=== PATIENT | female | born 1950 | race Caucasian/White ===

== ENCOUNTER → 2016-11-26 | Outpatient (CLI) | payer MEDICAID, OTHER | LOC: MW.US 09:48 | PROVIDERS: ATTEND Internal Medicine | DX: I50.9 Heart failure, unspecified (principal); Z53.9 Procedure and treatment not carried out, unspecified reason ==

== ENCOUNTER 2016-11-28 08:05 | Emergency (ER) | payer MEDICARE, MEDICAID, OTHER ==
--- NOTE | 2016-11-28 08:13 | EDM.PDOC ---
ED HPI DIABETIC EMERGENCY - General Chief Complaint: Diabetic Complaint Stated Complaint: UNRESPONSIVE Time Seen by Provider: 11/28/16 08:07 - History of Present Illness INITIAL COMMENTS - FREE TEXT/NARRATIVE: HISTORY AND PHYSICAL: History of present illness: Patient 65-year-old female concern of insulin reaction she states she feels like she could not eat adequately yesterday she did take her usual dose medications and had a hypoglycemic episode prompting paramedics involvement paramedics noted a blood sugar of 46 on arrival she was given glucagon followed by D50 on arrival here her blood sugars 146 the patient is without complaints Review of systems: As per history of present illness and below otherwise all systems reviewed and negative. Past medical history: As per history of present illness and as reviewed below otherwise noncontributory. Surgical history: As per history of present illness and as reviewed below otherwise noncontributory. Social history: No reported history of drug or alcohol abuse. Family history: As per history of present illness and as reviewed below otherwise noncontributory. Physical exam: HEENT: Atraumatic, normocephalic, pupils reactive, negative for conjunctival pallor or scleral icterus, mucous membranes moist, throat clear, neck supple, nontender, trachea midline. Lungs: Clear to auscultation, breath sounds equal bilaterally, chest nontender. Heart: S1S2, regular, negative for clicks, rubs, or JVD. Abdomen: Soft, nondistended, nontender. Negative for masses or hepatosplenomegaly. Negative for costovertebral tenderness. Pelvis: Stable nontender. Genitourinary: Deferred. Rectal: Deferred. Extremities: Atraumatic, negative for cords or calf pain. Neurovascular unremarkable. Neuro: Awake, alert, oriented. Limited but grossly nonfocal exam Diagnostics: CBC CMP Therapeutics: None Impression: #1 hypoglycemia secondary to insulin reaction Definitive disposition and diagnosis as appropriate pending reevaluation and review of above. - Related Data Allergies/ADRs: Allergies Allergy/AdvReac Type Severity Reaction Status Date / Time cephalexin Allergy Cannot Verified 11/28/16 08:09 Remember Penicillins Allergy Rash Verified 11/28/16 08:09 Home Meds: Home Meds Nitroglycerin 2.5 mg PO DAILY 01/22/14 [History] Albuterol [Proventil HFA] 2 inh IH QID PRN 08/22/15 [History] Cyanocobalamin (Vitamin B12) [Vitamin B12] 1,000 mcg IM Q30D 08/22/15 [History] Insulin Detemir [Levemir Flextouch] 40 units SUBCUT BEDTIME 08/22/15 [History] Insulin Detemir [Levemir Flextouch] 42 units SUBCUT QAM 08/22/15 [History] Levothyroxine 0.175 mg PO ACBREAKFAST 08/22/15 [History] Insulin Aspart [Novolog Flexpen] 15 unit SQ TIDAC 09/04/16 [History] Albuterol/Ipratropium [DuoNeb 3.0-0.5 MG/3 ML] 1 vial NEB QID PRN 09/05/16 [ History] Pregabalin [Lyrica] 150 mg PO TID #30 capsule 09/05/16 [Rx] Ramipril [Altace] 10 mg PO DAILY 09/05/16 [History] Travoprost [Travatan Z] 1 drop EYEBOTH BEDTIME 09/05/16 [History] Aspirin [Halfprin] 81 mg PO DAILY 10/20/16 [History] Brinzolamide [Azopt 1% Ophth Susp] 1 drop EYEBOTH BID 10/20/16 [History] Bumetanide 3 mg PO DAILY 10/20/16 [History] Carvedilol 3.125 mg PO BID 10/20/16 [History] Ciprofloxacin [Ciprofloxacin HCl] 250 mg PO BID 10/20/16 [History] Triamcinolone Acetonide [Triamcinolone Acetonide 0.1% Crm] 1 applic TOP BID [History] atorvaSTATin [Lipitor] 40 mg PO BEDTIME tablet 10/21/16 [Rx] Past Medical History HEENT History: Reports: Cataract, Glaucoma, Impaired vision Other HEENT History: wears glasses, has upper and lower dentures Cardiovascular History: Reports: Angina, Heart Failure, High cholesterol, Hypertension, [place], SOB on exertion, Stents Respiratory History: Reports: Asthma Gastrointestinal History: Reports: Other (see below) Other Gastrointestinal History: painful swallowing, lactose intolerant; acid reflux Genitourinary History: Reports: UTI, recurrent, Other (see below) Other Genitourinary History: Guardian reports kidneys are not "in good shape". Reports prior cirrosis of the liver that is resolved but unknown if it actually is. [employer] History: Reports: Musculoskeletal History: Reports: Arthritis, Fracture Neurological History: Reports: Neuropathy, diabetic Other Neuro History: legs, hands and feet Psychiatric History: Reports: Anxiety, Depression, Emotional problems, Learning disability, Panic attack Endocrine/Metabolic History: Reports: Diabetes, type II, Hypothyroidism, Obesity /BMI 30+ Hematologic History: Reports: None Immunologic History: Reports: None Oncologic (Cancer) History: Reports: None Dermatologic History: Reports: Eczema, Other (see below) Other Dermatologic History: hands; unknown rash for last 5 months. - Infectious Disease History Infectious Disease History: Reports: Chicken pox, Hepatitis C, Other (see below) Other Infectious Disease History: [facility] Hepatitis C was treated 15 years ago and it is "dormant" - Past Surgical History Head Surgeries/Procedures: Reports: None HEENT Surgical History: Reports: Cataract surgery, Other (see below) Other HEENT Surgeries/Procedures: Surgery for Glaucoma Cardiovascular Surgical History: Reports: Other (see below) Other Cardiovascular Surgeries/Procedures: denies carotid stenting as listed on clinic hx; Patient reports history of surgery of stent placement Respiratory Surgical History: Reports: None Female Surgical History: Reports: None Endocrine Surgical History: Reports: None Other Musculoskeletal Surgeries/Procedures:: ORIF right leg (tibia) and ankle Social & Family History - Family History Family Medical History: Noncontributory Other Dermatologic Family History: Sister/Guardian reported having scabies as well as her spouse and his children while living in [place] in . - Tobacco Use Smoking Status *Q: Never Smoker Second Hand Smoke Exposure: Yes - Caffeine Use Caffeine Use: Reports: Coffee, Soda, Tea - Alcohol Use Days Per Week of Alcohol Use: 0 - Recreational Drug Use Recreational Drug Use: Yes Drug Use in Last 12 Months: No ED ROS GENERAL - Review of Systems Review Of Systems: ROS reveals no pertinent complaints other than HPI. ED EXAM GENERAL NO PERIP PULSE - Physical Exam Exam: See Below (See dictation) Course - Orders/Labs/Meds Orders: Active Orders 24 hr Category Date Time Status CBC WITH AUTO DIFF [HEME] Stat Lab 11/28/16 08:09 Ordered COMPREHENSIVE METABOLIC PN,CMP [CHEM] Stat Lab 11/28/16 08:09 Ordered Departure - Departure Time of Disposition: 08:12 Disposition: Home, Self-Care 01 Condition: good Clinical Impression: Hypoglycemia, Insulin reaction Forms: ED Department Discharge Additional Instructions: The following information is given to patients seen in the emergency department who are being discharged to home. This information is to outline your options for follow-up care. We provide all patients seen in our emergency department with a follow-up referral. The need for follow-up, as well as the timing and circumstances, are variable depending upon the specifics of your emergency department visit. If you don't have a primary care physician on staff, we will provide you with a referral. We always advise you to contact your personal physician following an emergency department visit to inform them of the circumstance of the visit and for follow-up with them and/or the need for any referrals to a consulting specialist. The emergency department will also refer you to a specialist when appropriate. This referral assures that you have the opportunity for followup care with a specialist. All of these measure are taken in an effort to provide you with optimal care, which includes your followup. Under all circumstances we always encourage you to contact your private physician who remains a resource for coordinating your care. When calling for followup care, please make the office aware that this follow-up is from your recent emergency room visit. If for any reason you are refused follow-up, please contact the [facility] emergency department at and asked to speak to the emergency department charge nurse. He regularly monitor blood sugar every 6 hours follow up primary medical doctor one to 2 days continue current medications return as needed as discussed - My Orders Last 24 Hours: My Active Orders 11/28/16 08:09 CBC WITH AUTO DIFF [HEME] Stat COMPREHENSIVE METABOLIC PN,CMP [CHEM] Stat - Assessment/Plan Last 24 Hours: My Active Orders 11/28/16 08:09 CBC WITH AUTO DIFF [HEME] Stat COMPREHENSIVE METABOLIC PN,CMP [CHEM] Stat
[2016-11-28 10:23] VITALS: BP 128/70
== END 2016-11-28 10:21 | disposition home or self-care (01) ==
LOC: MW.ED 08:05
DX: E11.649 Type 2 diabetes mellitus with hypoglycemia without coma (principal); E78.00 Pure hypercholesterolemia, unspecified; I10 Essential (primary) hypertension; E11.9 Type 2 diabetes mellitus without complications; E66.9 Obesity, unspecified; Z88.0 Allergy status to penicillin; Z88.6 Allergy status to analgesic agent; Z79.82 Long term (current) use of aspirin; Z79.899 Other long term (current) drug therapy; Z98.49 Cataract extraction status, unspecified eye
CPT/HCPCS: 36415; 80053; 82962; 85025; 99284; 99285

== ENCOUNTER → 2016-12-15 | Outpatient (CLI) | payer MEDICARE, MEDICAID, OTHER | END | disposition home or self-care (01) | LOC: MW.CHIM 14:00 | PROVIDERS: ATTEND Internal Medicine | DX: I25.10 Atherosclerotic heart disease of native coronary artery without angina pectoris (principal) | CPT/HCPCS: 99204 ==

== ENCOUNTER → 2016-12-29 | Outpatient (CLI) | payer MEDICARE, MEDICAID, OTHER | LOC: MW.CHOBGYN 13:53 | PROVIDERS: ATTEND Nurse Practitioner Women's Health | DX: M81.0 Age-related osteoporosis without current pathological fracture (principal) | CPT/HCPCS: 82652; G0463 ==

== ENCOUNTER → 2017-01-16 | Outpatient (CLI) | payer MEDICARE, MEDICAID, OTHER | LOC: MW.CHIM 08:00 | PROVIDERS: ATTEND Internal Medicine | DX: NODX10 (principal) ==

== ENCOUNTER → 2017-01-27 | Outpatient (CLI) | payer MEDICARE, MEDICAID, OTHER ==
--- NOTE | 2017-01-27 17:13 | CR ---
EXAMINATION: Left knee HISTORY: Pain COMPARISON: None TECHNIQUE: 3 views FINDINGS/IMPRESSION: There is no acute osseous abnormality, dislocation, or fracture identified. Beth nt spaces appear grossly preserved within the osseous structures appear mildly osteopenic. No soft t issue swelling or joint effusion.
== END ==
LOC: MW.CHIM 14:18
PROVIDERS: ATTEND Internal Medicine
DX: M25.562 Pain in left knee (principal); M17.10 Unilateral primary osteoarthritis, unspecified knee; Z91.81 History of falling
CPT/HCPCS: 73562-26-LT; 73562-LT; G0463

== ENCOUNTER → 2017-02-05 | Outpatient (CLI) | payer MEDICARE, MEDICAID, OTHER ==
--- NOTE | 2017-02-05 14:55 | CR ---
EXAMINATION: Right knee HISTORY: Pain COMPARISON: 01/27/2017 TECHNIQUE: 4 views FINDINGS: Mild joint space narrowing within the medial compartment. There is an intramedullary adams n oted within the tibia. No fracture or acute osseous abnormalities noted. Bone mineralization appears mildly osteopenic. Old well-healed fibular fracture. Joint effusion or soft tissue swelling. IMPRESSION: 1. Mild degenerative changes without acute findings.
== END ==
LOC: MW.CHORTHO 07:37
PROVIDERS: ATTEND Orthopaedic Surgery
DX: M25.561 Pain in right knee (principal)
CPT/HCPCS: 20610; 73564-26-RT; 73564-RT; 99214; J1040

== ENCOUNTER 2017-02-26 11:00 | Emergency (ER) | payer MEDICARE, MEDICAID ==
[2017-02-26] MEDS ORDERED: 50% Dextrose in Water 50 ML Syringe IVPUSH ONE (11:01)
[2017-02-26] MEDS ORDERED: Haloperidol Lactate 5 MG/ML SDV ONE ×2 (11:08→11:13)
[2017-02-26] MEDS ORDERED: LORazepam 2 MG/ML MDV IVPUSH ONE (11:18)
[2017-02-26] MEDS ORDERED: Haloperidol Lactate 5 MG/ML SDV IM ONE ×2 (11:29→11:30)
[2017-02-26] MEDS ORDERED: Sodium Chloride 0.9% 1,000 ML IV ONE (11:30)
[2017-02-26] MEDS ORDERED: Sodium Chloride 0.9% 2,000 ML IV ONE (11:37)
[2017-02-26 11:56] LABS: CHLORIDE,CL 102 mmol/L (98-110); SODIUM,NA 140 mmol/L (136-146)
--- NOTE | 2017-02-26 12:32 | EDM.PDOC ---
ED HPI GENERAL MEDICAL PROBLEM - General Chief Complaint: General Stated Complaint: UNK Time Seen by Provider: 02/26/17 11:15 Source of Information: Reports: Patient History Limitations: Reports: No Limitations - History of Present Illness INITIAL COMMENTS - FREE TEXT/NARRATIVE: History of present illness: [66-year-old female brought in by caregiver with concerns of patient's altered mental status. Patient has a would behave this way once before according to the caregiver and that was when her blood sugar was catastrophically low. The caregiver indicates that she did take a random blood sugar and it was in the mid 60s and proceeded to stop and get the patient some food. patient presents telling and combative and we'll redirect on a limited basis.] Review of systems: As per history of present illness and below otherwise all systems reviewed and negative. Past medical history: As per history of present illness and as reviewed below otherwise noncontributory. Surgical history: As per history of present illness and as reviewed below otherwise noncontributory. Social history: No reported history of drug or alcohol abuse. Family history: As per history of present illness and as reviewed below otherwise noncontributory. Physical exam: HEENT: Atraumatic, normocephalic, pupils reactive, negative for conjunctival pallor or scleral icterus, mucous membranes moist, throat clear, neck supple, nontender, trachea midline. Lungs: Clear to auscultation, breath sounds equal bilaterally, chest nontender. Heart: S1S2, regular, negative for clicks, rubs, or JVD. Abdomen: Soft, nondistended, nontender. Negative for masses or hepatosplenomegaly. Negative for costovertebral tenderness. Pelvis: Stable nontender. Genitourinary: Deferred. Rectal: Deferred. Extremities: Atraumatic, negative for cords or calf pain. Neurovascular unremarkable. Neuro: Patient is oriented and slightly combative, Cranial nerves II through XII unremarkable. Cerebellum unremarkable. Motor and sensory unremarkable throughout. Exam nonfocal. After her addressing hypoglycemia as well as giving food and fluid replacement the patient patient is now presenting at her baseline per family member and caregiver. Patient discharged to home in care of caregiver. Diagnostics: [CBC, CMP, alcohol level, CT of the head without contrast] Therapeutics: [IV fluid, Haldol,] Impression: [hypoglycemia, UTI] Plan: [Discharge to home follow up with PCP antibiotic for UTI] Definitive disposition and diagnosis as appropriate pending reevaluation and review of above. - Related Data Allergies Allergy/AdvReac Type Severity Reaction Status Date / Time cephalexin Allergy Cannot Verified 02/26/17 11:06 Remember Penicillins Allergy Rash Verified 02/26/17 11:06 Home Meds: Home Meds Nitroglycerin 2.5 mg PO DAILY 01/22/14 [History] Albuterol [Proventil HFA] 2 inh IH QID PRN 08/22/15 [History] Cyanocobalamin (Vitamin B12) [Vitamin B12] 1,000 mcg IM Q30D 08/22/15 [History] Insulin Detemir [Levemir Flextouch] 40 units SUBCUT BEDTIME 08/22/15 [History] Insulin Detemir [Levemir Flextouch] 42 units SUBCUT QAM 08/22/15 [History] Levothyroxine 0.175 mg PO ACBREAKFAST 08/22/15 [History] Insulin Aspart [Novolog Flexpen] 15 unit SQ TIDAC 09/04/16 [History] Albuterol/Ipratropium [DuoNeb 3.0-0.5 MG/3 ML] 1 vial NEB QID PRN 09/05/16 [ History] Pregabalin [Lyrica] 150 mg PO TID #30 capsule 09/05/16 [Rx] Ramipril [Altace] 10 mg PO DAILY 09/05/16 [History] Travoprost [Travatan Z] 1 drop EYEBOTH BEDTIME 09/05/16 [History] Aspirin [Halfprin] 81 mg PO DAILY 10/20/16 [History] Brinzolamide [Azopt 1% Ophth Susp] 1 drop EYEBOTH BID 10/20/16 [History] Bumetanide 3 tab PO DAILY 10/20/16 [History] Carvedilol 3.125 mg PO BID 10/20/16 [History] Ciprofloxacin [Ciprofloxacin HCl] 250 mg PO BID 10/20/16 [History] Triamcinolone Acetonide [Triamcinolone Acetonide 0.1% Crm] 1 applic TOP BID [History] Doxycycline Hyclate 100 mg PO DAILY 11/28/16 [History] Fluconazole [Diflucan] 150 mg PO DAILY 11/28/16 [History] Nitrofurantoin Macrocrystal [Macrodantin] 100 mg PO BID #28 cap 02/26/17 [Rx] Nitrofurantoin Monohyd/M-Cryst [Macrobid 100 mg Capsule] 100 mg PO BID #20 capsule 02/26/17 [Rx] Past Medical History HEENT History: Reports: Cataract, Glaucoma, Impaired Vision Other HEENT History: wears glasses, has upper and lower dentures Cardiovascular History: Reports: Angina, Heart Failure, High Cholesterol, Hypertension, [place], SOB on Exertion, Stents Respiratory History: Reports: Asthma Gastrointestinal History: Reports: Other (See Below) Other Gastrointestinal History: painful swallowing, lactose intolerant; acid reflux Genitourinary History: Reports: UTI, Recurrent, Other (See Below) Other Genitourinary History: Guardian reports kidneys are not "in good shape". Reports prior cirrosis of the liver that is resolved but unknown if it actually is. [employer] History: Reports: Musculoskeletal History: Reports: Arthritis, Fracture Neurological History: Reports: Neuropathy, Diabetic Other Neuro History: legs, hands and feet Psychiatric History: Reports: Anxiety, Depression, Emotional Problems, Learning Disability, Panic Attack Endocrine/Metabolic History: Reports: Diabetes, Type II, Hypothyroidism, Obesity /BMI 30+ Hematologic History: Reports: None Immunologic History: Reports: None Oncologic (Cancer) History: Reports: None Dermatologic History: Reports: Eczema, Other (See Below) Other Dermatologic History: hands; unknown rash for last 5 months. - Infectious Disease History Infectious Disease History: Reports: Chicken Pox, Hepatitis C, Other (See Below) Other Infectious Disease History: [facility] Hepatitis C was treated 15 years ago and it is "dormant" - Past Surgical History Head Surgeries/Procedures: Reports: None HEENT Surgical History: Reports: Cataract Surgery, Other (See Below) Cardiovascular Surgical History: Reports: Other (See Below) Respiratory Surgical History: Reports: None Musculoskeletal Surgical History: Reports: Other (See Below) Social & Family History - Family History Family Medical History: Noncontributory Other Dermatologic Family History: Sister/Guardian reported having scabies as well as her spouse and his children while living in [place] in . - Tobacco Use Smoking Status *Q: Never Smoker Second Hand Smoke Exposure: Yes - Caffeine Use Caffeine Use: Reports: Coffee - Alcohol Use Days Per Week of Alcohol Use: 0 - Recreational Drug Use Recreational Drug Use: No Drug Use in Last 12 Months: No ED ROS GENERAL - Review of Systems Review Of Systems: See Below (See history of present illness) ED EXAM, GENERAL - Physical Exam Exam: See Below (See history of present illness) Course - Vital Signs Last Recorded V/S: Last Vital Signs Temp 35.9 C 02/26/17 11:16 Pulse 67 02/26/17 13:19 Resp 18 02/26/17 13:19 BP 137/66 02/26/17 13:19 Pulse Ox 95 02/26/17 13:19 - Orders/Labs/Meds Orders: Active Orders 24 hr Category Date Time Status EKG Documentation Completion [RC] STAT Care 02/26/17 11:17 Active Dextrose 5%-Lactated Ringers 1,000 ml Med 02/26/17 13:00 Active IV ASDIRECTED Medication Orders Dextrose/Lactated Ringer's (Dextrose 5%-Lactated Ringers) 1,000 mls @ 999 mls/ hr IV ASDIRECTED PARRISH Labs: Laboratory Tests 02/26/17 02/26/17 02/26/17 Range/Units 11:08 11:08 11:16 WBC 9.18 (4.0-11.0) K/uL RBC 4.55 (4.30-5.90) M/uL Hgb 13.5 (12.0-16.0) g/dL Hct 41.7 (36.0-46.0) % MCV 91.6 (80.0-98.0) fL MCH 29.7 (27.0-32.0) pg MCHC 32.4 (31.0-37.0) g/dL RDW Std Deviation 44.1 (28.0-62.0) fl RDW Coeff of Paramjit 13 (11.0-15.0) % Plt Count 229 (150-400) K/uL MPV 10.90 (7.40-12.00) fL Neut % (Auto) 46.5 L (48.0-80.0) % Lymph % (Auto) 39.7 (16.0-40.0) % Traill % (Auto) 6.1 (0.0-15.0) % Eos % (Auto) 7.4 H (0.0-7.0) % Baso % (Auto) 0.3 (0.0-1.5) % Neut # (Auto) 4.3 (1.4-5.7) K/uL Lymph # (Auto) 3.6 H (0.6-2.4) K/uL Traill # (Auto) 0.6 (0.0-0.8) K/uL Eos # (Auto) 0.7 (0.0-0.7) K/uL Baso # (Auto) 0.0 (0.0-0.1) K/uL Nucleated RBC % 0.0 /100WBC Nucleated RBCs # 0 K/uL Lactate (0.20-2.00) mmol/L Sodium 140 (136-146) mmol/L Potassium 5.0 (3.5-5.1) mmol/L Chloride 102 (98-110) mmol/L Carbon Dioxide 29 (21-31) mmol/L BUN 55 H (6.0-23.0) mg/dL Creatinine 2.2 H (0.6-1.5) mg/dL Est Cr Clr Drug Dosing 18.31 mL/min Estimated GFR (MDRD) 22.4 ml/min Glucose 38 L* (60-110) mg/dL POC Glucose 278 H (60-110) mg/dL Calcium 9.6 (8.8-10.8) mg/dL Total Bilirubin 0.3 (0.1-1.5) mg/dL AST 18 (5-40) IU/L ALT 15 (8-54) IU/L Alkaline Phosphatase 119 (40-150) Total Protein 7.8 (6.0-8.0) g/dL Albumin 3.9 (3.4-4.8) g/dL Globulin 3.9 H (2.0-3.5) g/dL Albumin/Globulin Ratio 1.0 L (1.3-2.8) Amylase 27 (10-90) U/L Lipase 18 (7-80) U/L Urine Color Urine Appearance Urine pH (5.0-8.0) Ur Specific [place] (1.001-1.035) Urine Protein (NEGATIVE) mg/dL Urine Glucose (UA) (NEGATIVE) mg/dL Urine Ketones (NEGATIVE) mg/dL Urine Occult Blood (NEGATIVE) Urine Nitrite (NEGATIVE) Urine Bilirubin (NEGATIVE) Urine Urobilinogen (<2.0) EU/dL Ur Leukocyte Esterase (NEGATIVE) Urine RBC (0-2/HPF) Urine WBC (0-5/HPF) Ur Epithelial Cells (NONE-FEW) Urine Bacteria (NEGATIVE) Urine Opiates Screen (NEGATIVE) Ur Oxycodone Screen (NEGATIVE) Urine Methadone Screen (NEGATIVE) Ur Barbiturates Screen (NEGATIVE) Ur Phencyclidine Scrn (NEGATIVE) Ur Amphetamine Screen (NEGATIVE) U Methamphetamines Scrn (NEGATIVE) U Benzodiazepines Scrn (NEGATIVE) U Cocaine Metab Screen (NEGATIVE) U Marijuana (THC) Screen (NEGATIVE) Ethyl Alcohol < 10.0 mg/dL 02/26/17 02/26/17 02/26/17 Range/Units 12:09 12:25 12:25 WBC (4.0-11.0) K/uL RBC (4.30-5.90) M/uL Hgb (12.0-16.0) g/dL Hct (36.0-46.0) % MCV (80.0-98.0) fL MCH (27.0-32.0) pg MCHC (31.0-37.0) g/dL RDW Std Deviation (28.0-62.0) fl RDW Coeff of Paramjit (11.0-15.0) % Plt Count (150-400) K/uL MPV (7.40-12.00) fL Neut % (Auto) (48.0-80.0) % Lymph % (Auto) (16.0-40.0) % Traill % (Auto) (0.0-15.0) % Eos % (Auto) (0.0-7.0) % Baso % (Auto) (0.0-1.5) % Neut # (Auto) (1.4-5.7) K/uL Lymph # (Auto) (0.6-2.4) K/uL Traill # (Auto) (0.0-0.8) K/uL Eos # (Auto) (0.0-0.7) K/uL Baso # (Auto) (0.0-0.1) K/uL Nucleated RBC % /100WBC Nucleated RBCs # K/uL Lactate (0.20-2.00) mmol/L Sodium (136-146) mmol/L Potassium (3.5-5.1) mmol/L Chloride (98-110) mmol/L Carbon Dioxide (21-31) mmol/L BUN (6.0-23.0) mg/dL Creatinine (0.6-1.5) mg/dL Est Cr Clr Drug Dosing mL/min Estimated GFR (MDRD) ml/min Glucose (60-110) mg/dL POC Glucose 146 H (60-110) mg/dL Calcium (8.8-10.8) mg/dL Total Bilirubin (0.1-1.5) mg/dL AST (5-40) IU/L ALT (8-54) IU/L Alkaline Phosphatase (40-150) Total Protein (6.0-8.0) g/dL Albumin (3.4-4.8) g/dL Globulin (2.0-3.5) g/dL Albumin/Globulin Ratio (1.3-2.8) Amylase (10-90) U/L Lipase (7-80) U/L Urine Color YELLOW Urine Appearance CLEAR Urine pH 5.5 (5.0-8.0) Ur Specific [place] <= 1.005 (1.001-1.035) Urine Protein NEGATIVE (NEGATIVE) mg/dL Urine Glucose (UA) NEGATIVE (NEGATIVE) mg/dL Urine Ketones NEGATIVE (NEGATIVE) mg/dL Urine Occult Blood NEGATIVE (NEGATIVE) Urine Nitrite POSITIVE H (NEGATIVE) Urine Bilirubin NEGATIVE (NEGATIVE) Urine Urobilinogen 0.2 (<2.0) EU/dL Ur Leukocyte Esterase MODERATE (NEGATIVE) Urine RBC 1-2 (0-2/HPF) Urine WBC TO NUMEROUS TO COUNT H (0-5/HPF) Ur Epithelial Cells FEW (NONE-FEW) Urine Bacteria 1+ H (NEGATIVE) Urine Opiates Screen NEGATIVE (NEGATIVE) Ur Oxycodone Screen NEGATIVE (NEGATIVE) Urine Methadone Screen NEGATIVE (NEGATIVE) Ur Barbiturates Screen NEGATIVE (NEGATIVE) Ur Phencyclidine Scrn NEGATIVE (NEGATIVE) Ur Amphetamine Screen NEGATIVE (NEGATIVE) U Methamphetamines Scrn NEGATIVE (NEGATIVE) U Benzodiazepines Scrn NEGATIVE (NEGATIVE) U Cocaine Metab Screen NEGATIVE (NEGATIVE) U Marijuana (THC) Screen NEGATIVE (NEGATIVE) Ethyl Alcohol mg/dL 02/26/17 02/26/17 02/26/17 Range/Units 12:45 12:47 13:24 WBC (4.0-11.0) K/uL RBC (4.30-5.90) M/uL Hgb (12.0-16.0) g/dL Hct (36.0-46.0) % MCV (80.0-98.0) fL MCH (27.0-32.0) pg MCHC (31.0-37.0) g/dL RDW Std Deviation (28.0-62.0) fl RDW Coeff of Paramjit (11.0-15.0) % Plt Count (150-400) K/uL MPV (7.40-12.00) fL Neut % (Auto) (48.0-80.0) % Lymph % (Auto) (16.0-40.0) % Traill % (Auto) (0.0-15.0) % Eos % (Auto) (0.0-7.0) % Baso % (Auto) (0.0-1.5) % Neut # (Auto) (1.4-5.7) K/uL Lymph # (Auto) (0.6-2.4) K/uL Traill # (Auto) (0.0-0.8) K/uL Eos # (Auto) (0.0-0.7) K/uL Baso # (Auto) (0.0-0.1) K/uL Nucleated RBC % /100WBC Nucleated RBCs # K/uL Lactate 1.3 (0.20-2.00) mmol/L Sodium (136-146) mmol/L Potassium (3.5-5.1) mmol/L Chloride (98-110) mmol/L Carbon Dioxide (21-31) mmol/L BUN (6.0-23.0) mg/dL Creatinine (0.6-1.5) mg/dL Est Cr Clr Drug Dosing mL/min Estimated GFR (MDRD) ml/min Glucose (60-110) mg/dL POC Glucose 176 H 243 H (60-110) mg/dL Calcium (8.8-10.8) mg/dL Total Bilirubin (0.1-1.5) mg/dL AST (5-40) IU/L ALT (8-54) IU/L Alkaline Phosphatase (40-150) Total Protein (6.0-8.0) g/dL Albumin (3.4-4.8) g/dL Globulin (2.0-3.5) g/dL Albumin/Globulin Ratio (1.3-2.8) Amylase (10-90) U/L Lipase (7-80) U/L Urine Color Urine Appearance Urine pH (5.0-8.0) Ur Specific [place] (1.001-1.035) Urine Protein (NEGATIVE) mg/dL Urine Glucose (UA) (NEGATIVE) mg/dL Urine Ketones (NEGATIVE) mg/dL Urine Occult Blood (NEGATIVE) Urine Nitrite (NEGATIVE) Urine Bilirubin (NEGATIVE) Urine Urobilinogen (<2.0) EU/dL Ur Leukocyte Esterase (NEGATIVE) Urine RBC (0-2/HPF) Urine WBC (0-5/HPF) Ur Epithelial Cells (NONE-FEW) Urine Bacteria (NEGATIVE) Urine Opiates Screen (NEGATIVE) Ur Oxycodone Screen (NEGATIVE) Urine Methadone Screen (NEGATIVE) Ur Barbiturates Screen (NEGATIVE) Ur Phencyclidine Scrn (NEGATIVE) Ur Amphetamine Screen (NEGATIVE) U Methamphetamines Scrn (NEGATIVE) U Benzodiazepines Scrn (NEGATIVE) U Cocaine Metab Screen (NEGATIVE) U Marijuana (THC) Screen (NEGATIVE) Ethyl Alcohol mg/dL Meds: Medications Generic Name Dose Route Start Last Admin Trade Name Freq PRN Reason Stop Dose Admin Dextrose/Lactated Ringer's 1,000 mls @ 999 mls/hr 02/26/17 13:00 Dextrose 5%-Lactated Ringers IV ASDIRECTED PARRISH Discontinued Medications Generic Name Dose Route Start Last Admin Trade Name Freq PRN Reason Stop Dose Admin Dextrose/Water 50 ml 02/26/17 11:01 02/26/17 11:15 Dextrose 50% In Water IVPUSH 02/26/17 11:02 50 ml ONETIME ONE Administration Haloperidol Lactate Confirm 02/26/17 11:08 02/26/17 11:14 Haldol Administered 02/26/17 11:09 5 mg Dose Administration 5 mg .ROUTE .STK-MED ONE Haloperidol Lactate Confirm 02/26/17 11:13 02/26/17 11:31 Haldol Administered 02/26/17 11:14 Not Given Dose 5 mg .ROUTE .STK-MED ONE Haloperidol Lactate 5 mg 02/26/17 11:29 02/26/17 12:54 Haldol IM 02/26/17 11:30 Not Given ONETIME ONE Haloperidol Lactate 5 mg 02/26/17 11:30 02/26/17 12:54 Haldol IM 02/26/17 11:31 Not Given ONETIME ONE Sodium Chloride 1,000 mls @ 999 mls/hr 02/26/17 11:30 02/26/17 11:31 Normal Saline IV 02/26/17 12:30 999 mls/hr .Bolus ONE Administration Sodium Chloride 2,000 mls @ 999 mls/hr 02/26/17 11:37 02/26/17 12:55 Normal Saline IV 02/26/17 13:37 Not Given STAT ONE Lorazepam 2 mg 02/26/17 11:18 Ativan IVPUSH 02/26/17 11:19 ONETIME ONE Departure - Departure Time of Disposition: 14:01 Disposition: Home, Self-Care 01 Condition: good Clinical Impression: Hypoglycemia UTI (urinary tract infection) Qualifiers: Urinary tract infection type: site unspecified Hematuria presence: without hematuria Qualified Code(s): N39.0 - Urinary tract infection, site not specified - Discharge Information Prescriptions: Nitrofurantoin Macrocrystal [Macrodantin] 100 mg PO BID #28 cap Nitrofurantoin Monohyd/M-Cryst [Macrobid 100 mg Capsule] 100 mg PO BID #20 capsule Forms: ED Department Discharge Additional Instructions: The following information is given to patients seen in the emergency department who are being discharged to home. This information is to outline your options for follow-up care. We provide all patients seen in our emergency department with a follow-up referral. The need for follow-up, as well as the timing and circumstances, are variable depending upon the specifics of your emergency department visit. If you don't have a primary care physician on staff, we will provide you with a referral. We always advise you to contact your personal physician following an emergency department visit to inform them of the circumstance of the visit and for follow-up with them and/or the need for any referrals to a consulting specialist. The emergency department will also refer you to a specialist when appropriate. This referral assures that you have the opportunity for follow-up care with a specialist. All of these measure are taken in an effort to provide you with optimal care, which includes your follow-up. Under all circumstances we always encourage you to contact your private physician who remains a resource for coordinating your care. When calling for follow-up care, please make the office aware that this follow-up is from your recent emergency room visit. If for any reason you are refused follow-up, please contact the [facility] Emergency Department at and asked to speak to the emergency department charge nurse. Take medication as directed Followup with PCP 1-2 day Return to ED as needed as - My Orders Last 24 Hours: My Active Orders 02/26/17 11:17 EKG Documentation Completion [RC] STAT 02/26/17 13:00 Dextrose 5%-Lactated Ringers 1,000 ml IV ASDIRECTED - Assessment/Plan Last 24 Hours: My Active Orders 02/26/17 11:17 EKG Documentation Completion [RC] STAT 02/26/17 13:00 Dextrose 5%-Lactated Ringers 1,000 ml IV ASDIRECTED
[2017-02-26] MEDS ORDERED: Dextrose 5%-Lactated Ringers 1,000 ML IV SCH (13:00)
--- NOTE | 2017-02-26 13:10 | CT ---
EXAM DATE: 02/26/17 PATIENT'S AGE: 66 Patient: HANY GEORGE Facility: [place], [place] Site . Site : 1950 Study: CT Head [id number] 11:50:36 AM Ordering Physician: Doctor Stewart Final Report: INDICATION: Acute mental status changes. Technique: CT head without IV contrast. Comparison: CT head 10/19/2016. Findings: Advanced vascular calcifications. Osteopenia. No intracranial hemorrhage, edema , or mass-effect. Minimal cerebral atrophy. Tiny old lacunar infarct in the left lateral basal ganglia more apparent. Remainder negative. Impression: No acute intracranial disease. Chronic changes as described above. Please note that all CT scans at this facility use dose modulation, iterative reconstruction, and/or weight-based dosing when appropriate to reduce radiation dose to as low as reasonably achievable. Dictated by Wilfredo Blanco MD @ Feb 26 2017 12:20PM (Electronic Signature) Report Signed by Proxy. MTDD
[2017-02-26 15:51] VITALS: BP 112/58
== END 2017-02-26 16:02 | disposition home or self-care (01) ==
LOC: MW.ED 11:00
DX: E11.649 Type 2 diabetes mellitus with hypoglycemia without coma (principal); N39.0 Urinary tract infection, site not specified; I11.0 Hypertensive heart disease with heart failure; I50.9 Heart failure, unspecified; I25.2 Old myocardial infarction; E78.00 Pure hypercholesterolemia, unspecified; J45.909 Unspecified asthma, uncomplicated; F41.8 Other specified anxiety disorders; E03.9 Hypothyroidism, unspecified; E66.9 Obesity, unspecified; Z98.49 Cataract extraction status, unspecified eye; Z79.4 Long term (current) use of insulin; Z79.82 Long term (current) use of aspirin; Z79.899 Other long term (current) drug therapy; Z88.0 Allergy status to penicillin; Z88.1 Allergy status to other antibiotic agents
CPT/HCPCS: 36415; 70450; 80053; 80305; 81001; 82150; 82962; 83605; 83690; 85025; 93005; 96361; 96374; 96375; 99285; G0480; J1630; J7040; J7042; J7060; 99284

== ENCOUNTER 2019-02-03 07:56 | Emergency (ER) | payer MEDICARE, MEDICAID ==
[2019-02-03] MEDS ORDERED: Sodium Chloride 0.9% 2.5 ML Syringe FLUSH PRN (08:10)
[2019-02-03] MEDS ORDERED: Sodium Chloride 0.9% 10 ML Syringe FLUSH PRN (08:10)
[2019-02-03] MEDS ORDERED: methylPREDNISolone Sodium Succinate 125 MG/2 ML SDV IVPUSH ONE (08:11)
--- NOTE | 2019-02-03 08:33 | EDM.PDOC ---
ED HPI GENERAL MEDICAL PROBLEM - General Chief Complaint: Respiratory Problem Stated Complaint: ASTHMA ATTACK Time Seen by Provider: 02/03/19 08:04 Source of Information: Reports: Patient History Limitations: Reports: No Limitations - History of Present Illness INITIAL COMMENTS - FREE TEXT/NARRATIVE: History of present illness: []Patient has history of asthma, diabetes, coronary artery disease and states she started having an asthma attack this morning. She used an inhaler without much relief. Her sister who is her caregiver called 911 and received a DuoNeb in the ambulance with marked improvement arriving to the ED feeling much better. Denies any fevers, chills states she has some mild right-sided chest pain when she coughs but not while she is sitting still. Review of systems: As per history of present illness and below otherwise all systems reviewed and negative. Past medical history: As per history of present illness and as reviewed below otherwise noncontributory. Surgical history: As per history of present illness and as reviewed below otherwise noncontributory. Social history: No reported history of drug or alcohol abuse. Family history: As per history of present illness and as reviewed below otherwise noncontributory. Physical exam: General: Well developed, well nourished in NAD HEENT: Atraumatic, normocephalic, pupils reactive, negative for conjunctival pallor or scleral icterus, mucous membranes moist, throat clear, neck supple, nontender, trachea midline. Lungs: Decreased breath sounds equal bilaterally, chest nontender. Heart: S1S2, regular, negative for clicks, rubs, or JVD. Bilateral lower leg edema nontender Abdomen: NABS, Soft, nondistended, nontender. Negative for masses or hepatosplenomegaly. Negative for costovertebral tenderness. Pelvis: Stable nontender. Genitourinary: Deferred. Rectal: Deferred. Extremities: Atraumatic, negative for cords or calf pain. Neurovascular unremarkable. No erythema Neuro: Awake, alert, oriented. Cranial nerves II through XII unremarkable. Cerebellum unremarkable. Motor and sensory unremarkable throughout. Exam nonfocal. Skin:warm and dry Diagnostics: EKG, chest x-ray, CBC, chemistry, BNP, UA, troponin-negative Therapeutics: DuoNeb, Solu-Medrol ED Course: Improved Impression: Asthma exacerbation Prescriptions: None Plan: Take meds as directed, follow up with your primary care physician, return to ER if symptoms worsen or change. Definitive disposition and diagnosis as appropriate pending reevaluation and review of above. Treatments PRIVACY SPECIALIST: Reports: Breathing Treatments, IV/IO, Oxygen - Related Data Allergies Allergy/AdvReac Type Severity Reaction Status Date / Time cephalexin Allergy Cannot Verified 02/03/19 08:03 Remember latex Allergy Rash Verified 02/03/19 08:03 Penicillins Allergy Rash Verified 02/03/19 08:03 Home Meds: Home Meds Nitroglycerin 2.5 mg PO DAILY 01/22/14 [History] Albuterol [Proventil HFA] 2 inh IH QID PRN 08/22/15 [History] Insulin Detemir [Levemir Flextouch] 40 units SUBCUT BEDTIME 08/22/15 [History] Insulin Detemir [Levemir Flextouch] 42 units SUBCUT QAM 08/22/15 [History] Insulin Aspart [Novolog Flexpen] 15 unit SQ TIDAC 09/04/16 [History] Albuterol/Ipratropium [DuoNeb 3.0-0.5 MG/3 ML] 1 vial NEB QID PRN 09/05/16 [ History] Ramipril [Altace] 10 mg PO DAILY 09/05/16 [History] Aspirin [Halfprin] 81 mg PO DAILY 10/20/16 [History] Carvedilol 3.125 mg PO BID 10/20/16 [History] Folic Acid 1 mg PO DAILY 02/03/19 [History] Furosemide 20 mg PO ACBREAKFAST 02/03/19 [History] Levothyroxine Sodium [Synthroid] 125 mcg PO DAILY 02/03/19 [History] Pregabalin [Lyrica] 150 mg PO BID 02/03/19 [History] amLODIPine Besylate [Amlodipine Besylate] 10 mg PO BEDTIME 02/03/19 [History] metOLazone [Metolazone] 5 mg PO DAILY 02/03/19 [History] traMADol HCl [Tramadol HCl] 50 mg PO BID PRN 02/03/19 [History] Past Medical History HEENT History: Reports: Cataract, Glaucoma, Impaired Vision Other HEENT History: wears glasses, has upper and lower dentures Cardiovascular History: Reports: Angina, Heart Failure, High Cholesterol, Hypertension, MA, SOB on Exertion, Stents Respiratory History: Reports: Asthma Gastrointestinal History: Reports: Other (See Below) Other Gastrointestinal History: painful swallowing, lactose intolerant; acid reflux Genitourinary History: Reports: UTI, Recurrent, Other (See Below) Other Genitourinary History: Guardian reports kidneys are not "in good shape". Reports prior cirrosis of the liver that is resolved but unknown if it actually is. LAB ASSOCIATE History: Reports: Musculoskeletal History: Reports: Arthritis, Fracture Neurological History: Reports: Neuropathy, Diabetic Other Neuro History: legs, hands and feet Psychiatric History: Reports: Anxiety, Depression, Emotional Problems, Learning Disability, Panic Attack Endocrine/Metabolic History: Reports: Diabetes, Type II, Hypothyroidism, Obesity /BMI 30+ Hematologic History: Reports: None Immunologic History: Reports: None Oncologic (Cancer) History: Reports: None Dermatologic History: Reports: Eczema Other Dermatologic History: hands; unknown rash for last 5 months. - Infectious Disease History Infectious Disease History: Reports: Chicken Pox, Hepatitis C, Measles, Mumps, Other (See Below) Other Infectious Disease History: Alejandra dodson Hepatitis C was treated 15 years ago and it is "dormant" - Past Surgical History Head Surgeries/Procedures: Reports: None HEENT Surgical History: Reports: Cataract Surgery Respiratory Surgical History: Reports: None Social & Family History - Family History Family Medical History: Noncontributory Other Dermatologic Family History: Sister/Guardian reported having scabies as well as her spouse and his children while living in [place] in . - Tobacco Use Smoking Status *Q: Never Smoker - Caffeine Use Caffeine Use: Reports: Coffee - Recreational Drug Use Recreational Drug Use: No ED ROS GENERAL - Review of Systems Review Of Systems: ROS reveals no pertinent complaints other than HPI. ED EXAM, GENERAL - Physical Exam Exam: See Below (See history of present illness) Course - Vital Signs Last Recorded V/S: Last Vital Signs Temp 98.6 F 02/03/19 08:00 Pulse 76 02/03/19 09:14 Resp 18 02/03/19 09:14 BP 131/84 02/03/19 09:14 Pulse Ox 94 L 02/03/19 09:14 - Orders/Labs/Meds Orders: Active Orders 24 hr Category Date Time Status EKG Documentation Completion [RC] STAT Care 02/03/19 08:13 Active Sodium Chloride 0.9% [Saline Flush] Med 02/03/19 08:10 Active 10 ml FLUSH ASDIRECTED PRN Sodium Chloride 0.9% [Saline Flush] Med 02/03/19 08:10 Active 2.5 ml FLUSH ASDIRECTED PRN Saline Lock Insert [OM.PC] Stat Oth 02/03/19 08:10 Ordered Medication Orders Sodium Chloride (Saline Flush) 10 ml FLUSH ASDIRECTED PRN PRN Reason: Keep Vein Open Last Admin: 02/03/19 08:18 Dose: 10 ml Sodium Chloride (Saline Flush) 2.5 ml FLUSH ASDIRECTED PRN PRN Reason: Keep Vein Open Last Admin: 02/03/19 08:19 Dose: 2.5 ml Labs: Laboratory Tests 02/03/19 02/03/19 02/03/19 Range/Units 08:09 08:09 09:46 WBC 6.61 (4.0-11.0) K/uL RBC 3.87 L (4.30-5.90) M/uL Hgb 11.3 L (12.0-16.0) g/dL Hct 35.4 L (36.0-46.0) % MCV 91.5 (80.0-98.0) fL MCH 29.2 (27.0-32.0) pg MCHC 31.9 (31.0-37.0) g/dL RDW Std Deviation 47.0 (28.0-62.0) fl RDW Coeff of Paramjit 14 (11.0-15.0) % Plt Count 140 L (150-400) K/uL MPV 11.80 (7.40-12.00) fL Neut % (Auto) 70.5 (48.0-80.0) % Lymph % (Auto) 18.0 (16.0-40.0) % [place] % (Auto) 5.7 (0.0-15.0) % Eos % (Auto) 5.6 (0.0-7.0) % Baso % (Auto) 0.2 (0.0-1.5) % Neut # (Auto) 4.7 (1.4-5.7) K/uL Lymph # (Auto) 1.2 (0.6-2.4) K/uL [place] # (Auto) 0.4 (0.0-0.8) K/uL Eos # (Auto) 0.4 (0.0-0.7) K/uL Baso # (Auto) 0.0 (0.0-0.1) K/uL Nucleated RBC % 0.0 /100WBC Nucleated RBCs # 0 K/uL Sodium 136 (136-145) mmol/L Potassium 5.5 H (3.5-5.1) mmol/L Chloride 103 (98-107) mmol/L Carbon Dioxide 27.0 (21.0-32.0) mmol/L BUN 73 H (7.0-18.0) mg/dL Creatinine 2.1 H (0.6-1.0) mg/dL Est Cr Clr Drug Dosing TNP Estimated GFR (MDRD) 23.5 ml/min Glucose 109 H (74-106) mg/dL Calcium 8.7 (8.5-10.1) mg/dL Total Bilirubin 0.3 (0.2-1.0) mg/dL AST 13 L (15-37) IU/L ALT 17 (14-63) IU/L Alkaline Phosphatase 72 (46-116) U/L Troponin I < 0.050 (0.000-0.056) ng/mL B-Natriuretic Peptide 160 H (<100) PG/ML Total Protein 7.4 (6.4-8.2) g/dL Albumin 3.1 L (3.4-5.0) g/dL Globulin 4.3 H (2.6-4.0) g/dL Albumin/Globulin Ratio 0.7 L (0.9-1.6) Urine Color Urine Appearance Urine pH (5.0-8.0) Ur Specific [place] (1.001-1.035) Urine Protein (NEGATIVE) mg/dL Urine Glucose (UA) (NEGATIVE) mg/dL Urine Ketones (NEGATIVE) mg/dL Urine Occult Blood (NEGATIVE) Urine Nitrite (NEGATIVE) Urine Bilirubin (NEGATIVE) Urine Urobilinogen (<2.0) EU/dL Ur Leukocyte Esterase (NEGATIVE) Urine RBC (0-2/HPF) Urine WBC (0-5/HPF) Ur Epithelial Cells (NONE-FEW) Amorphous Sediment (NEGATIVE) Urine Bacteria (NEGATIVE) Urine Mucus (NONE-MOD) 02/03/19 Range/Units 10:53 WBC (4.0-11.0) K/uL RBC (4.30-5.90) M/uL Hgb (12.0-16.0) g/dL Hct (36.0-46.0) % MCV (80.0-98.0) fL MCH (27.0-32.0) pg MCHC (31.0-37.0) g/dL RDW Std Deviation (28.0-62.0) fl RDW Coeff of Paramjit (11.0-15.0) % Plt Count (150-400) K/uL MPV (7.40-12.00) fL Neut % (Auto) (48.0-80.0) % Lymph % (Auto) (16.0-40.0) % [place] % (Auto) (0.0-15.0) % Eos % (Auto) (0.0-7.0) % Baso % (Auto) (0.0-1.5) % Neut # (Auto) (1.4-5.7) K/uL Lymph # (Auto) (0.6-2.4) K/uL [place] # (Auto) (0.0-0.8) K/uL Eos # (Auto) (0.0-0.7) K/uL Baso # (Auto) (0.0-0.1) K/uL Nucleated RBC % /100WBC Nucleated RBCs # K/uL Sodium (136-145) mmol/L Potassium (3.5-5.1) mmol/L Chloride (98-107) mmol/L Carbon Dioxide (21.0-32.0) mmol/L BUN (7.0-18.0) mg/dL Creatinine (0.6-1.0) mg/dL Est Cr Clr Drug Dosing Estimated GFR (MDRD) ml/min Glucose (74-106) mg/dL Calcium (8.5-10.1) mg/dL Total Bilirubin (0.2-1.0) mg/dL AST (15-37) IU/L ALT (14-63) IU/L Alkaline Phosphatase (46-116) U/L Troponin I (0.000-0.056) ng/mL B-Natriuretic Peptide (<100) PG/ML Total Protein (6.4-8.2) g/dL Albumin (3.4-5.0) g/dL Globulin (2.6-4.0) g/dL Albumin/Globulin Ratio (0.9-1.6) Urine Color YELLOW Urine Appearance SLT CLOUDY Urine pH 5.5 (5.0-8.0) Ur Specific [place] 1.010 (1.001-1.035) Urine Protein NEGATIVE (NEGATIVE) mg/dL Urine Glucose (UA) NEGATIVE (NEGATIVE) mg/dL Urine Ketones NEGATIVE (NEGATIVE) mg/dL Urine Occult Blood TRACE-INTACT H (NEGATIVE) Urine Nitrite NEGATIVE (NEGATIVE) Urine Bilirubin NEGATIVE (NEGATIVE) Urine Urobilinogen 0.2 (<2.0) EU/dL Ur Leukocyte Esterase NEGATIVE (NEGATIVE) Urine RBC 1-3 (0-2/HPF) Urine WBC 2-3 (0-5/HPF) Ur Epithelial Cells FEW (NONE-FEW) Amorphous Sediment LIGHT (NEGATIVE) Urine Bacteria FEW (NEGATIVE) Urine Mucus NOT SEEN (NONE-MOD) Meds: Medications Generic Name Dose Route Start Last Admin Trade Name Freq PRN Reason Stop Dose Admin Sodium Chloride 10 ml 02/03/19 08:10 02/03/19 08:18 Saline Flush FLUSH 10 ml ASDIRECTED PRN Administration Keep Vein Open Sodium Chloride 2.5 ml 02/03/19 08:10 02/03/19 08:19 Saline Flush FLUSH 2.5 ml ASDIRECTED PRN Administration Keep Vein Open Discontinued Medications Generic Name Dose Route Start Last Admin Trade Name Freq PRN Reason Stop Dose Admin Methylprednisolone Sodium Succinate 125 mg 02/03/19 08:11 02/03/19 08:18 Solu-Medrol IVPUSH 02/03/19 08:12 125 mg ONETIME ONE Administration Departure - Departure Time of Disposition: 11:17 Disposition: Home, Self-Care 01 Condition: Good Clinical Impression: Asthma exacerbation Qualifiers: Asthma severity: mild Asthma persistence: intermittent Qualified Code(s): J45.21 - Mild intermittent asthma with (acute) exacerbation - Discharge Information *PRESCRIPTION DRUG MONITORING PROGRAM REVIEWED*: No *COPY OF PRESCRIPTION DRUG MONITORING REPORT IN PATIENT COLE: No Forms: ED Department Discharge Additional Instructions: The following information is given to patients seen in the emergency department who are being discharged to home. This information is to outline your options for follow-up care. We provide all patients seen in our emergency department with a follow-up referral. The need for follow-up, as well as the timing and circumstances, are variable depending upon the specifics of your emergency department visit. If you don't have a primary care physician on staff, we will provide you with a referral. We always advise you to contact your personal physician following an emergency department visit to inform them of the circumstance of the visit and for follow-up with them and/or the need for any referrals to a consulting specialist. The emergency department will also refer you to a specialist when appropriate. This referral assures that you have the opportunity for follow-up care with a specialist. All of these measure are taken in an effort to provide you with optimal care, which includes your follow-up. Under all circumstances we always encourage you to contact your private physician who remains a resource for coordinating your care. When calling for follow-up care, please make the office aware that this follow-up is from your recent emergency room visit. If for any reason you are refused follow-up, please contact the [facility] Emergency Department at and asked to speak to the emergency department charge nurse. Take meds as directed, follow up with your primary care physician, return to ER if symptoms worsen or change. [facility] [address] [place] [address] - My Orders Last 24 Hours: My Active Orders 02/03/19 08:10 Sodium Chloride 0.9% [Saline Flush] 10 ml FLUSH ASDIRECTED PRN Sodium Chloride 0.9% [Saline Flush] 2.5 ml FLUSH ASDIRECTED PRN Saline Lock Insert [OM.PC] Stat 02/03/19 08:13 EKG Documentation Completion [RC] STAT - Assessment/Plan Last 24 Hours: My Active Orders 02/03/19 08:10 Sodium Chloride 0.9% [Saline Flush] 10 ml FLUSH ASDIRECTED PRN Sodium Chloride 0.9% [Saline Flush] 2.5 ml FLUSH ASDIRECTED PRN Saline Lock Insert [OM.PC] Stat 02/03/19 08:13 EKG Documentation Completion [RC] STAT
--- NOTE | 2019-02-03 08:49 | CR ---
EXAMINATION: Portable chest radiograph. HISTORY: Shortness of breath. FINDINGS: The trachea is midline. The cardiomediastinal silhouette is within normal limits. Patchy bibasilar infiltrates, left greater than right. No pleural effusion or pneumothorax. Mild prominence of the central pulmonary vasculature. Osseous structures appear unremarkable. IMPRESSION: 1. Mild bibasilar infiltrate, left greater than right. Due to the increased pulmonary vasculature, this may represent heart failure.
[2019-02-03 09:23] LABS: CHLORIDE,CL 103 mmol/L (98-107); SODIUM,NA 136 mmol/L (136-145)
[2019-02-03 11:44] VITALS: BP 131/61
== END 2019-02-03 11:33 | disposition home or self-care (01) ==
LOC: MW.ED 07:56
DX: J45.21 Mild intermittent asthma with (acute) exacerbation (principal); E11.9 Type 2 diabetes mellitus without complications; I25.10 Atherosclerotic heart disease of native coronary artery without angina pectoris; I11.0 Hypertensive heart disease with heart failure; I50.9 Heart failure, unspecified; E11.40 Type 2 diabetes mellitus with diabetic neuropathy, unspecified; F41.9 Anxiety disorder, unspecified; F32.9 Major depressive disorder, single episode, unspecified; E03.9 Hypothyroidism, unspecified; Z88.1 Allergy status to other antibiotic agents; Z91.040 Latex allergy status; Z88.0 Allergy status to penicillin; Z79.4 Long term (current) use of insulin; Z79.899 Other long term (current) drug therapy
CPT/HCPCS: 36415; 71045; 80053; 81001; 83880; 84484; 85025; 93005; 96374; 99285; J2930